=== PATIENT | male | born 1970 | race Caucasian/White ===

== ENCOUNTER 2021-06-07 19:32 | Emergency (ER) | payer SELFPAY ==
[~2021-06-07] VITALS: Ht 160 cm; Wt 62.9 kg
--- NOTE | 2021-06-07 19:51 | NUR ---
INITIAL PT CONTACT. PT PRESENTS TO ED C/O RECTAL PAIN, TENDERNESS AND "GROWTH" X4 MONTHS. PT UNABLE TO SIT COMFORTABLY, "WHEN I SIT NORMAL IT HURTS REALLY BAD." PT SITTING UPRIGHT ON MUMTAZ SOTO. SPOUSE AT BEDSIDE. AWAITING ERP
[2021-06-07] MEDS ORDERED: OXYcodone/APAP 5/325MG TABLET PO ONE (20:30)
[2021-06-07] MEDS ORDERED: OXYcodone/APAP 5/325MG TABLET ONE (20:36)
[2021-06-07 21:59] VITALS: BP 142/72
--- NOTE | 2021-06-07 21:59 | NUR ---
Patient given discharge instructions and they have confirmed that they understand the instructions. Patient ambulatory with steady gait. NAD, all questions answered appropriately, denies additional needs at this time. No personal belongings left in room after discharge.
== END 2021-06-07 22:00 | disposition home or self-care (01) ==
LOC: ED 21:35
DX: L28.0 Lichen simplex chronicus (principal); F17.210 Nicotine dependence, cigarettes, uncomplicated
CPT/HCPCS: 82962; 99283